=== PATIENT | female | born 1995 | race Caucasian/White ===

== ENCOUNTER → 2017-05-28 14:28 | Outpatient (CLI) | payer SELFPAY ==
--- NOTE | 2017-05-28 15:12 | RAD_ITS ---
STUDY: X-RAY - LEFT ANKLE REASON FOR EXAM: Lateral pain, fall. TECHNIQUE: 3 view(s) of the ankle. COMPARISON: None. FINDINGS: Normal visualized distal tibia and fibula. Normal medial and lateral malleoli. There is a tibiotalar joint effusion. Normal visualized talus and calcaneus. The visualized subtalar, talonavicular, calcaneocuboid and tarsal articulations are normal. There is soft tissue swelling over the lateral malleolus. RAD/Ankle min 3 Views IMPRESSION: Tibiotalar joint effusion. No demonstrated fracture. Electronically Signed: Bernardo Garibay MD at 15:58 EST Tel , Service support ,
== END ==
PROVIDERS: Family Provider Internal Medicine; PCP Internal Medicine; Visit Provider Internal Medicine
DX: M25.572 Pain in left ankle and joints of left foot (principal); M25.472 Effusion, left ankle
CPT/HCPCS: 73610

== ENCOUNTER → 2019-03-02 11:44 | Outpatient (CLI) | payer SELFPAY | PROVIDERS: Visit Provider Obstetrics & Gynecology | DX: Z12.4 Encounter for screening for malignant neoplasm of cervix (principal); Z11.3 Encounter for screening for infections with a predominantly sexual mode of transmission ==

== ENCOUNTER → 2019-03-18 15:33 | Outpatient (CLI) | payer SELFPAY ==
[2019-03-18 17:30] LABS: Absolute Lymphocyte Count 1.95 X10^3/uL (0.83-4.51); Absolute Neutrophil Count 6.3 X10^3/uL (2.0-7.7); Basophil# 0.04 X10^3/uL; Basophil% 0.5 % (0-1); Color, Urine Yellow (Yellow); Eosinophil# 0.12 X10^3/uL; Eosinophils% 1.4 % (0-5); Glucose, Dipstick Normal (Normal); Hematocrit 35.3 % (37-47); Hemoglobin 11.8 g/dL (12.0-15.0); Ketone-Dipstick Negative (Negative); Leukocyte Esterase-Dipstick 25 /ul (Negative); Lymphocyte # 1.95 X10^3/ul (4.0); Mean Corp Hgb Conc 33.4 g/dL (32-36); Mean Corpuscular Hgb 29.9 pg (27.0-32.0); Mean Corpuscular Volume 89.4 fL (81-99); Mean Platelet Vol. 10.3 fl (6.2-12.0); Monocyte# 0.47 X10^3/uL; Monocyte% 5.3 % (0-10); NRBC Flagged by Analyzer 0 % (0-5); Neutrophil # 6.27 X10^3/uL (2.7-7.7); Neutrophil % 70.5 % (47-70); Nitrite-Dipstick Negative (Negative); Occult Blood-Urine Negative /ul (Negative); Platelet Count 275 K/mm3 (150-450); Protein-Dipstick Negative (Negative); RBC Distribution Width CV 11.7 % (11.6-14.6); RBC Distribution Width SD 37.9 fl (35.1-43.9); Red Blood Count 3.95 M/mm3 (4.2-5.4); Urine Bilirubin Dipstick Negative (Negative); Urine Clarity Clear (Clear); Urine Urobilinogen Normal (Normal); Urine pH 6.5 (5.0 - 8.0); White Blood Count 8.9 K/mm3 (4.4-11.0)
[2019-03-18 17:53] LABS: Thyroid Stim Hormone (TSH) 0.24 uIU/mL (0.358-3.74)
[2019-03-18 17:56] LABS: Amphetamine Urine VISTA NEGATIVE (<1000 ng/mL); Barbiturate Urine VISTA NEGATIVE (< 200 ng/mL); Benzodiazepine Urine VISTA NEGATIVE (< 200 ng/mL); Cocaine Urine VISTA NEGATIVE (< 300 ng/mL); Ecstacy Urine VISTA NEGATIVE (< 500 ng/mL); Methadone Urine VISTA NEGATIVE (< 300 ng/mL); PCP Urine VISTA NEGATIVE (< 25 ng/mL); THC Urine VISTA NEGATIVE (< 50 ng/mL); Vista UDS pH Range 6
[2019-03-18 23:51] LABS: Free T3 3.3 pg/mL (2.18-3.98); T4 Free Direct 1.17 ng/dL (0.76-1.46)
[2019-03-21 10:13] LABS: HIV - WCH Non-Reactive (Nonreactive); Hepatitis B Surface Antigen Non-Reactive (Nonreactive); Hepatitis C Antibody Non-Reactive (Nonreactive); Rubella IgG 96.8 IU/mL
[2019-03-24 00:56] LABS: Prenatal RPR NONREACTIVE (NONREACTIVE)
== END ==
PROVIDERS: Visit Provider Obstetrics & Gynecology
DX: O99.280 Endocrine, nutritional and metabolic diseases complicating pregnancy, unspecified trimester (principal); E07.9 Disorder of thyroid, unspecified; Z3A.00 Weeks of gestation of pregnancy not specified
CPT/HCPCS: 36415; 80307; 81002; 84439; 84443; 84481; 85025; 86703; 86762; 86803; 87340

== ENCOUNTER → 2019-08-04 | Outpatient (CLI) | payer SELFPAY ==
[2019-08-04 18:24] LABS: Hematocrit 30.3 % (37-47); Hemoglobin 9.9 g/dL (12.0-15.0); Mean Corp Hgb Conc 32.7 g/dL (32-36); Mean Corpuscular Hgb 30.4 pg (27.0-32.0); Mean Corpuscular Volume 92.9 fL (81-99); Mean Platelet Vol. 10.2 fl (6.2-12.0); Platelet Count 237 K/mm3 (150-450); RBC Distribution Width CV 12.3 % (11.6-14.6); RBC Distribution Width SD 42.4 fl (35.1-43.9); Red Blood Count 3.26 M/mm3 (4.2-5.4); White Blood Count 10.6 K/mm3 (4.4-11.0)
[2019-08-04 19:16] LABS: Glucose Challenge Gest 1H 50g 118 mg/dL (70-140); Thyroid Stim Hormone (TSH) 1.05 uIU/mL (0.358-3.74)
== END | disposition home or self-care (01) ==
LOC: LABSPEC 17:38
PROVIDERS: Visit Provider Obstetrics & Gynecology
DX: Z34.83 Encounter for supervision of other normal pregnancy, third trimester (principal)
CPT/HCPCS: 82950; 84443; 85027; 86850

== ENCOUNTER → 2019-09-29 | Outpatient (CLI) | payer SELFPAY | END | disposition home or self-care (01) | LOC: LABSPEC 17:55 | PROVIDERS: Visit Provider Obstetrics & Gynecology | DX: Z36.85 Encounter for antenatal screening for Streptococcus B (principal) | CPT/HCPCS: 87081 ==

== ENCOUNTER 2019-10-27 14:50 | Inpatient (IN) | payer SELFPAY ==
[2019-10-27] VITALS (43 sets, daily range): BP systolic 116–155; BP diastolic 58–105; PULSE 76–123; RESP 18; TEMP 36.1–36.7; O2SAT 84–100; BMI 36.5
[2019-10-27] MEDS: Lactated Ringers 1,000 ML 200 ML IV (15:15)
--- NOTE | 2019-10-27 15:17 | PCM.HP.OB ---
- Problem List (1) 40 weeks gestation of Status: Acute History Date of Admission: 10/27/19 Final DAVID: 10/27/19 Final DAVID Source: US <20 weeks Gestational age: 40 Weeks and 0 Days History of this : This is a 24 year-old, G [1], P [0], at 40 weeks gestational age. Allergies No Known Allergies Allergy (Verified 10/27/19 13:39) Home Medications: Home Medications Calcium Carbonate [Calcium] 500 mg PO DAILY 10/27/19 Iron,Carbonyl/Folic Acid/Mv-Mn [Active Fe Tablet] 1 ea PO DAILY 10/27/19 Magnesium 30 mg PO DAILY 10/27/19 [place]-3 Fatty Acids/Fish Oil [[place] 3 1,000 mg Softgel] 2 cap PO DAILY 10/27/19 Vit83/Iron/Folat6/Dha 1 tab PO DAILY 10/27/19 Vit B Complex 100 Combo No.2 [B-100 Complex] 1 tab PO DAILY 10/27/19 Alcohol: None Number of Fetus(es): 1 NST - FHR Rate Baby A Baseline: 130 Variability:: Moderate Accelerations:: 15 x 15 Decelerations:: None NST Reactive:: Yes FHR Category:: Category I Uterine Activity:: 1.5-4m History Past Pregnancies: Past Pregnancies: None Labs: Mom's Problem List Problem Status Onset Code 40 weeks gestation of Acute Z3A.40 Mom's Labs & Results 10/27/19 10/27/19 10/27/19 15:15 15:15 15:15 WBC 14.0 H RBC 3.84 L Hgb 11.4 L Hct 35.0 L MCV 91.1 MCH 29.7 MCHC 32.6 RDW Std Deviation 41.0 RDW Coeff of Leslie 12.7 Plt Count 262 MPV 10.0 Immature Gran % (Auto) 0.900 Neut % (Auto) 85.4 H Lymph % (Auto) 9.7 L [place] % (Auto) 3.6 Eos % (Auto) 0.2 Baso % (Auto) 0.2 Absolute Neuts (auto) 11.9 H Absolute Lymphs (auto) 1.36 Nucleated RBC % 0 Blood Type A NEGATIVE Antibody Screen TNP NEGATIVE Course Did the patient receive Yes care? Labs Blood Type: A RH: NEGATIVE RPR/VDRL/Syphilis Nonreactive Rubella status Immune HbSAg Negative Date Done: 03/18/19 Chlamydia Negative Gonorrhea Negative HIV/AIDS Non-Reactive Group B Strep: Negative Current Obstetrical History Gestational Diabetes No Incompetent Cervix No Infertility No IUGR No Macrosomia No Hypertension/Pre-eclampsia No Placenta Previa/Abruption No PTL/PROM No Uterine anomaly No Oligohydramnios No Polyhydramnios No Multiple gestation No Past Medical History Asthma No Diabetes No Hypertension No Heart disease No Mitral valve prolapse No Neurologic/Seizure disorder/ No Migraines Kidney disease No Liver disease No Varicosities No Clotting disorders/Hx of DVT No Thyroid Dysfunction No Other medical diseases No Psychiatric disorders No Major trauma No Abnormal PAP smear No Sleep apnea No Mammogram in the last 2 years No Social History Marital Status: Alleged father Clifford Hx Smoking No Smoking Status Never smoker Expected Delivery Method: Spontaneous Vaginal Number of Visits: 13 Review of Systems Constitutional: Denies: Chills, Fever, Weight Change HEENT: Denies: Head Aches, Sinus Congestion, Sinus Drainage Cardiovascular: Denies: Chest Pain, Palpitations Respiratory: Denies: Cough, Shortness of breath at rest, Sputum production Gastrointestinal: Denies: Abdominal Pain, Nausea, Vomiting Genitourinary: Denies: Dysuria Musculoskeletal: Denies: Joint Pain, Joint Tenderness Skin: Denies: Rash, Wounds Neurological: Denies: Numbness, Tingling, Focal weakness Psychiatric: Denies: Anxiety, Depression, Homicidal Ideations, Suicidal Ideations Hematologic/ Lymphatic: Denies: Easy Bruising, Easy Bleeding Physical Exam Vitals: Vital Signs Temp Pulse BP Pulse Ox 97.8 F 97 127/73 H 98 10/27/19 14:15 10/27/19 14:15 10/27/19 14:15 10/27/19 14:15 General: Alert, Oriented x3, No apparent distress HEENT: Atraumatic, Normocephalic. 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 Negative for: Vulvar lesions Estimated gestational size: Appropriate for gestational size Presentation: Cephalic Cervix Dilation (cm): 4.5 Station: -2 Effacement (%): 80 Assessment/Plan All Active Problems 40 weeks gestation of (Acute) A/P: This is a 24 year-old, G [1], P [0], at 40 weeks gestational age. SVE on arrival 370/-2, after two hours 4.5-580/-2 with a bulging bag of amniotic fluid UC 1.5-3m NST Category I Patient reviewing pain management options and undecided. Wants to await AROM for now Admit in active labor Expect Procedure Criteria Procedure Type: Elective COVID Risk Discussion: The surgeon/proceduralist and patient have discussed in detail the risk of exposure to and/or potential harm posed by the COVID-19 virus with having a surgery/procedure at this time versus the risk of delaying the surgery/procedure. It is not possible to know either the risk of delaying the surgery or procedure or chance of getting an infection with perfect accuracy, but a joint decision was made between the patient and the surgeon/proceduralist to proceed at this time with the scheduled surgery/procedure as indicated on the consent form.
[2019-10-27 15:26] LABS: Absolute Lymphocyte Count 1.36 X10^3/uL (0.83-4.51); Absolute Neutrophil Count 11.9 X10^3/uL (2.0-7.7); Basophil# 0.03 X10^3/uL; Basophil% 0.2 % (0-1); Eosinophil# 0.03 X10^3/uL; Eosinophils% 0.2 % (0-5); Hemoglobin 11.4 g/dL (12.0-15.0); Lymphocyte # 1.36 X10^3/ul (4.0); Lymphocyte % 9.7 % (19-41); Mean Corp Hgb Conc 32.6 g/dL (32-36); Mean Corpuscular Hgb 29.7 pg (27.0-32.0); Mean Corpuscular Volume 91.1 fL (81-99); Monocyte% 3.6 % (0-10); NRBC Flagged by Analyzer 0 % (0-5); Neutrophil # 11.92 X10^3/uL (2.7-7.7); Neutrophil % 85.4 % (47-70); Platelet Count 262 K/mm3 (150-450); RBC Distribution Width CV 12.7 % (11.6-14.6); Red Blood Count 3.84 M/mm3 (4.2-5.4)
--- NOTE | 2019-10-27 17:51 | PN.OBGYN_ITS ---
Patient Problems: Active and Suspected Problems 40 weeks gestation of (Acute) Subjective: Contractions are a 6/10 pain, but not wanting pain medication. Objective: VSS. UC 1.5-5m. SVE /-1. NST FHR caseline 140, +accels, -decels, moderate variability. - Physical Exam Vitals/I&O's: Vital Signs Temp Pulse BP Pulse Ox 97.9 F 93 141/82 H 100 10/27/19 17:36 10/27/19 17:36 10/27/19 17:36 10/27/19 17:36 Weight: 105.687 kg Body Mass Index (BMI) 36.5 General: Alert, Oriented x3, Cooperative HEENT: Atraumatic, PERRLA, EOMI, Normocephalic Neck: Supple, No JVD, Negative Carotid Bruits Lungs: Clear to auscultation, Normal air movement Cardiovascular: Regular rate, No murmurs Abdomen: Bowel Sounds Present, Soft, Non Tender Extremities: No edema, Capillary Refill Less than 3 Seconds Skin: No rashes, No breakdown Musculoskeletal: No Tenderness to Palpation of Joints or Extremities Neurological: Cranial nerves II-XII grossly intact Psych/Mental Status: Normal Affect, Appropriate Laboratory Results 10/27/19 15:15: WBC 14.0 H, RBC 3.84 L, Hgb 11.4 L, Hct 35.0 L, MCV 91.1, MCH 29.7, MCHC 32.6, RDW Std Deviation 41.0, RDW Coeff of Leslie 12.7, Plt Count 262, MPV 10.0, Immature Gran % (Auto) 0.900, Neut % (Auto) 85.4 H, Lymph % (Auto) 9.7 L, [place] % (Auto) 3.6, Eos % (Auto) 0.2, Baso % (Auto) 0.2, Absolute Neuts (auto) 11.9 H, Absolute Lymphs (auto) 1.36, Nucleated RBC % 0 10/27/19 15:15: Blood Type A NEGATIVE, Antibody Screen TNP 10/27/19 15:15: Antibody Screen NEGATIVE Current Medications Acetaminophen (Tylenol) 325 - 650 mg PO Q4H PRN PRN PRN Reason: Pain Score 1-3/10 Al Hydroxide/Mg Hydroxide (Mylanta Ii) 15 - 30 ml PO Q4H PRN PRN PRN Reason: INDIGESTION Citric Acid/Sodium Citrate (Bicitra) 30 ml PO X1 PRN PRN Reason: Section Fentanyl Citrate (Sublimaze (100mcg Ampule)) 25 - 50 mcg IV Q2H PRN PRN PRN Reason: Pain Score 4-10/10 Lactated Ringer's () 500 mls @ 999 mls/hr IV .Q31M PRN PRN Reason: Epidural Lactated Ringer's () 500 mls @ 999 mls/hr IV .Q31M PRN PRN Reason: Corrective Measures Lactated Ringer's () 1,000 mls @ 50 mls/hr IV .Q20H MARTA Last Admin: 10/27/19 15:15 Dose: 200 mls/hr Documented by: Ondansetron HCl (Zofran) 4 mg IV Q4H PRN PRN PRN Reason: NAUSEA Prochlorperazine Edisylate (Compazine Iv) 10 mg IV Q6H PRN PRN PRN Reason: NAUSEA Sodium Chloride () 10 - 40 ml IV X1 PRN PRN Reason: SALINE FLUSH Medical Necessity - Tobacco Use Smoking Status: Never smoker Assessment/Plan All Active Problems 40 weeks gestation of (Acute) A/P: AROM with moderate meconium stained fluid SVE /-1 UC 1.5-4m NST Category I Plans natural labor and delivery Expect
[2019-10-27] MEDS: fentaNYL-bupivacaine (epidural) 100 ML BAG EPIDURAL (18:35)
[2019-10-27] MEDS: Oxytocin 30 units/NS 500 ml 30 UNITS/500 ML IV.SOLN 334 UNITS IV (19:10)
--- NOTE | 2019-10-27 19:52 | PCM.OPRPT ---
Problem List (1) 40 weeks gestation of Status: Acute Vaginal Delivery Maternal Presentation: Active Labor Amniotic Membrane Rupture Type: Artificial Amniotic Fluid Description: Moderate meconium Final DAVID: 10/27/19 Final DAVID Source: [place] <20 weeks Gestational age: 40 Weeks and 0 Days Date of Procedure: 10/27/19 Pre-Operative Diagnosis: Active Labor Post-Operative Diagnosis: Surgery/ Procedure Performed: Spontaneous Vaginal Delivery Type of Anesthesia: Epidural, Local with 1% lidocaine Description of Procedure: Patient was FD at +3 station with spontaneous urge to push. She pushed well to deliver head in OA to CARIN. Loose nuchal x1 noted, delivered body through and reduced after delivery. The was placed on the maternal abdomen. The cord was doubly clamped and cut by FOB under CNM supervision at approximately 3 minutes of life. IV Pitocin started per protocol. With gentle traction the placenta delivered spontaneously and appeared intact on inspection. 2nd degree perineal laceration noted and repaired under epidural and 1% local Lidocaine by attending physician Dr. Schneider with a 3.0 rapide/double. EBL 200. Apgars 8/9. Sponge and needle counts correct x 2. Presentation: Vertex, CARIN Placental Delivery Description: Spontaneous Placenta Disposition: [facility] Cord Vessel Description: 3 Vessels Cord Entanglement: Around neck x 1, loose Estimated Blood Loss: 200 Infant A gender: Female (1 minute): 8 (5 minute): 9 Episiotomy Description: None Laceration: Perineal Extension/lac, 2nd degree Medications given after delivery: IV Pitocin
--- NOTE | 2019-10-27 19:59 | DCINST_ITS ---
Discharge Diet: No Restrictions Discharge Activity: Return to Normal Activity, May not drive while taking narcotic pain medications., May Shower May resume sexual activity in: 4-6 weeks Additional Activity Instructions:: Nothing in the vagina for 4-6 weeks. You may return to work/school in 6 weeks. Call your doctor if your incision/area has: Continuous Slow Oozing, Sudden Increased Bleeding, Increased Pain/ Swelling, Increased Redness, Foul Smelling Discharge Additional Instructions: If you experience any of the following, contact your healthcare provider. * Bleeding that soaks a pad every hour for 2 hours * Fever 100.4 or higher * Unrelieved incision or abdominal pain * Swelling, redness, discharge or bleeding from your incision or episiotomy site * Your incision begins to separate * Problems urinating (including inability to urinate or burning while urinating). * Visual changes * Severe headache * Flu-like symptoms * Pain or redness in one of both of your breasts * Pain, warmth, tenderness or swelling in your legs, especially the calf area * Frequent nausea and vomiting * Symptoms of depression or anxiety If you experience any of the following, call 911 or go to the nearest Emergency Room. * Chest pain * Problems breathing * Seizure activity * Partial or complete paralysis of a body part, slurred speech, weakness or drooping of the face, or a sudden inability to walk or hold your balance Allergies/Adverse Reactions: Allergies No Known Allergies Allergy (Verified 10/27/19 13:39) Medications to take at Discharge Calcium Carbonate [Calcium] 500 mg PO DAILY 10/27/19 Iron,Carbonyl/Folic Acid/Mv-Mn [Active Fe Tablet] 1 ea PO DAILY 10/27/19 Magnesium 30 mg PO DAILY 10/27/19 [place]-3 Fatty Acids/Fish Oil [[place] 3 1,000 mg Softgel] 2 cap PO DAILY 10/27/19 Vit83/Iron/Folat6/Dha 1 tab PO DAILY 10/27/19 Vit B Complex 100 Combo No.2 [B-100 Complex] 1 tab PO DAILY 10/27/19 Please Follow Up With: Jessica Oneil CNM When: Call to make an appointment with your CNM in 2 weeks for a telehealth appt and 6 weeks for a routine PP appointment. Test Results: Test results from this visit will be discussed in further detail at your follow- up appointment, if applicable.
--- NOTE | 2019-10-27 20:33 | OP.PCM_ITS ---
Vaginal Delivery Description of Procedure: After spontaneous vaginal delivery per [facility] Jessica Oneil, I was called for a vaginal laceration repair. Examination revealed a second-degree midline laceration with some bleeding from the right side of the laceration. Laceration was closed in layers with 3-0 repeat suture under epidural and local without difficulty. This was done with both running locked running and interrupted [id number] sutures. After the repair the area was examined and noted to be hemostatic. Minimal blood loss was encountered during this portion of the procedure and the procedure was tolerated well by the patient.
[2019-10-27] MEDS: Ibuprofen 600 MG Tablet PO (21:52)
[2019-10-28 03:13] VITALS: BP 120/71; PULSE 89; RESP 18; TEMP 36.2
[2019-10-28] MEDS: Acetaminophen 500 MG Tablet 1000 MG PO (03:25)
[2019-10-28 08:45] VITALS: BP 123/61; PULSE 87; RESP 18; TEMP 36.6; O2SAT 96
--- NOTE | 2019-10-28 08:45 | PN.OBGYN_ITS ---
Patient Problems: Active and Suspected Problems 40 weeks gestation of (Acute) Subjective: Feeling well this morning, just very sore. Has been out of bed, urinating well. Tolerated a regular diet. daughter, but having latch issues. Objective: VSS. Fundus is firm, midline, u/2. Lochia rubra moderate. - Physical Exam Vitals/I&O's: Vital Signs Temp Pulse Resp BP Pulse Ox 97.2 F L 89 18 120/71 84 10/28/19 03:13 10/28/19 03:13 10/28/19 03:13 10/28/19 03:13 10/27/19 18:34 Oxygen Delivery Method Room Air Weight: 105.687 kg Body Mass Index (BMI) 36.5 Intake and Output for Last 24 Hours 10/26/19 10/27/19 10/28/19 23:59 23:59 23:59 Intake Total 1283.33 / 1283.33 Output Total 300 / 300 300 / 300 Balance 983.33 / 983.33 -300 / -300 General: Alert, Oriented x3, Cooperative HEENT: Atraumatic, PERRLA, EOMI, Normocephalic Neck: Supple, No JVD, Negative Carotid Bruits Lungs: Clear to auscultation, Normal air movement Cardiovascular: Regular rate, No murmurs Abdomen: Bowel Sounds Present, Soft, Non Tender Extremities: No edema, Capillary Refill Less than 3 Seconds Skin: No rashes, No breakdown Musculoskeletal: No Tenderness to Palpation of Joints or Extremities Neurological: Cranial nerves II-XII grossly intact Psych/Mental Status: Normal Affect, Appropriate Laboratory Results 10/27/19 15:15: WBC 14.0 H, RBC 3.84 L, Hgb 11.4 L, Hct 35.0 L, MCV 91.1, MCH 29.7, MCHC 32.6, RDW Std Deviation 41.0, RDW Coeff of [place] 12.7, Plt Count 262, MPV 10.0, Immature Gran % (Auto) 0.900, Neut % (Auto) 85.4 H, Lymph % (Auto) 9.7 L, [place] % (Auto) 3.6, Eos % (Auto) 0.2, Baso % (Auto) 0.2, Absolute Neuts (auto) 11.9 H, Absolute Lymphs (auto) 1.36, Nucleated RBC % 0 10/27/19 15:15: Blood Type A NEGATIVE, Antibody Screen TNP 10/27/19 15:15: Antibody Screen NEGATIVE Current Medications Acetaminophen (Tylenol) 1,000 mg PO Q8H PRN PRN PRN Reason: Pain Score 1-3/10 Last Admin: 10/28/19 03:25 Dose: 1,000 mg Documented by: Bisacodyl (Dulcolax) 10 mg RECTAL UD PRN PRN Reason: If no BM Hydrocortisone (Hytone) 1 applic TOPICAL TID PRN PRN; Protocol PRN Reason: Discomfort Ibuprofen (Motrin) 600 mg PO Q6H PRN PRN PRN Reason: Pain Score 1-3/10 Last Admin: 10/27/19 21:52 Dose: 600 mg Documented by: Methylergonovine Maleate (Methergine) 0.2 mg IM X1 PRN PRN Reason: Excess bleeding/uterine atony Ondansetron HCl (Zofran) 4 mg IV Q4H PRN PRN PRN Reason: Nausea Oxycodone HCl (Oxyir) 5 - 10 mg PO Q4H PRN PRN PRN Reason: Pain Score 4-10/10 Senna/Docusate Sodium (Senokot-S, [place]-Colace) 1 - 2 tablet PO DAILY PRN PRN PRN Reason: Constipation Simethicone (Mylicon) 80 mg PO PCHS PRN PRN Reason: Indigestion/Stomach pain Sodium Chloride () 5 - 15 ml IV UD PRN PRN Reason: SALINE FLUSH Throat Lozenges (Dermoplast (Sp)) 1 applic TOPICAL 4X/DAY PRN PRN; Protocol PRN Reason: Pain/Inflammation Medical Necessity - Tobacco Use Smoking Status: Never smoker Assessment/Plan All Active Problems 40 weeks gestation of (Acute) A/P: S/P day 31 mother Dyad stable Will have assess today for latch problems May want to discharge tonight, will reassess this afternoon
[2019-10-28 12:45] VITALS: BP 116/62; PULSE 98; RESP 18; TEMP 36.7; O2SAT 96
[2019-10-28] MEDS: Ibuprofen 600 MG Tablet PO ×2 (12:54→21:45)
[2019-10-28 16:45] VITALS: BP 128/73; PULSE 91; RESP 18; TEMP 36.7; O2SAT 98
[2019-10-28 20:30] VITALS: BP 134/75; PULSE 99; RESP 17; TEMP 36.2; O2SAT 97
[2019-10-29 02:25] VITALS: BP 118/65; PULSE 94; RESP 16; TEMP 36.7
[2019-10-29 08:30] VITALS: BP 141/78; PULSE 96; RESP 18; TEMP 36.3; O2SAT 98
[2019-10-29] MEDS: Ibuprofen 600 MG Tablet PO (10:51)
--- NOTE | 2019-10-29 11:36 | PCM.PN.OB ---
Patient Problems: Active and Suspected Problems 40 weeks gestation of (Acute) Subjective: Reports has been going a lot better with the nipple shield. Denies heavy bleeding or pain, just mild cramping and vaginal tenderness. Would like to discharge today. Objective: VSS. Fundus is firm, midline, u/2. Lochia rubra moderate. - Physical Exam Vitals/I&O's: Vital Signs Temp Pulse Resp BP Pulse Ox 97.4 F L 96 18 141/78 H 98 10/29/19 08:30 10/29/19 08:30 10/29/19 08:30 10/29/19 08:30 10/29/19 08:30 Oxygen Delivery Method Room Air Weight: 105.687 kg Body Mass Index (BMI) 36.5 Intake and Output for Last 24 Hours 10/27/19 10/28/19 10/29/19 23:59 23:59 23:59 Intake Total 1283.33 / 1283.33 Output Total 300 / 300 300 / 300 Balance 983.33 / 983.33 -300 / -300 General: Alert, Oriented x3, Cooperative HEENT: Atraumatic, PERRLA, EOMI, Normocephalic Neck: Supple, No JVD, Negative Carotid Bruits Lungs: Clear to auscultation, Normal air movement Cardiovascular: Regular rate, No murmurs Abdomen: Bowel Sounds Present, Soft, Non Tender Extremities: No edema, Capillary Refill Less than 3 Seconds Skin: No rashes, No breakdown Musculoskeletal: No Tenderness to Palpation of Joints or Extremities Neurological: Cranial nerves II-XII grossly intact Psych/Mental Status: Normal Affect, Appropriate Current Medications Acetaminophen (Tylenol) 1,000 mg PO Q8H PRN PRN PRN Reason: Pain Score 1-310 Last Admin: 10/28/19 03:25 Dose: 1,000 mg Documented by: Bisacodyl (Dulcolax) 10 mg RECTAL UD PRN PRN Reason: If no BM Hydrocortisone (Hytone) 1 applic TOPICAL TID PRN PRN; Protocol PRN Reason: Discomfort Ibuprofen (Motrin) 600 mg PO Q6H PRN PRN PRN Reason: Pain Score 1-310 Last Admin: 10/29/19 10:51 Dose: 600 mg Documented by: Methylergonovine Maleate (Methergine) 0.2 mg IM X1 PRN PRN Reason: Excess bleeding/uterine atony Ondansetron HCl (Zofran) 4 mg IV Q4H PRN PRN PRN Reason: Nausea Oxycodone HCl (Oxyir) 5 - 10 mg PO Q4H PRN PRN PRN Reason: Pain Score 4-10/10 Senna/Docusate Sodium (Senokot-S, Nadine-Colace) 1 - 2 tablet PO DAILY PRN PRN PRN Reason: Constipation Simethicone (Mylicon) 80 mg PO PCHS PRN PRN Reason: Indigestion/Stomach pain Sodium Chloride () 5 - 15 ml IV UD PRN PRN Reason: SALINE FLUSH Throat Lozenges (Dermoplast (Sp)) 1 applic TOPICAL 4X/DAY PRN PRN; Protocol PRN Reason: Pain/Inflammation Last Admin: 10/29/19 10:51 Dose: 1 applic Documented by: Medical Necessity - Tobacco Use Smoking Status: Never smoker Assessment/Plan All Active Problems 40 weeks gestation of (Acute) A/P: S/P day #2 mother, doing well with nipple shield after support Normal involution and lochia Dyad stable Educated on signs of PPD, support, resuming intercourse, contraception and how to reach provider 20/10 To have a 2 week telehealth PP visit and a routine 6 week PP visit Discharge home today
[2019-10-29 12:15] VITALS: BP 117/70; PULSE 94; RESP 16; TEMP 36.5; O2SAT 98
== END 2019-10-29 14:20 | disposition home or self-care (01) | DRG 807 ==
LOC: WPOUT 14:56 → WP 14:56
PROVIDERS: Admitting Provider Obstetrics & Gynecology; Referring Provider Obstetrics & Gynecology; Visit Provider Obstetrics & Gynecology
DX: O69.81X0 Labor and delivery complicated by cord around neck, without compression, not applicable or unspecified (principal); O70.1 Second degree perineal laceration during delivery; O77.0 Labor and delivery complicated by meconium in amniotic fluid; Z3A.40 40 weeks gestation of pregnancy; Z37.0 Single live birth
CPT/HCPCS: 59025; 59050; 85025; 86850; 86900; 86901; 99218; J7120; G0378